=== PATIENT | female | born 1990 | race Caucasian/White ===

== ENCOUNTER 2017-05-27 12:28 | Emergency (ER) | payer MEDICAID ==
[~2017-05-27] VITALS: Ht 165.1 cm; Wt 111.0 kg
[~2017-05-27 12:28] MED LIST: ALBU6.7H INH; DOCU-150 PO; FERR-63 PO
[2017-05-27] MEDS ORDERED: PANTOPRAZOLE SODIUM 40 MG/VIAL IV STA (12:44)
[2017-05-27] MEDS ORDERED: ONDANSETRON HCL 4MG/2ML VIAL IV STA (12:44)
[2017-05-27] MEDS ORDERED: SODIUM CHLORIDE 0.9% 1,000 ML IV ONE (12:44)
[2017-05-27 13:11] LABS: BASOPHILS % 0.6 % (0.0-2.0); EOSINOPHILS % 1.2 % (0.0-5.0); HEMATOCRIT. 29.4 % (36.0-48.0); HEMOGLOBIN. 8.8 g/dL (12.0-16.0); LYMPHOCYTES % 15.6 % (20.0-50.0); MEAN CORPUSCULAR HEMOGLOBIN 18.6 pg (28.0-32.0); MEAN CORPUSCULAR VOLUME 61.9 fL (81.0-99.0); MEAN PLATELET VOLUME 7.3 fl (7.4-10.4); MONOCYTES % 3.5 % (2.0-8.0); NEUTROPHILS % 79.1 % (40.0-76.0); PLATELET 466 x1000/uL (130-400); RED BLOOD CELL COUNT 4.75 mill/uL (4.2-5.4); RED CELL DISTRIBUTION WIDTH 18.9 % (11.6-14.6)
[2017-05-27] MEDS ORDERED: FAMOTIDINE 20MG/2ML VIAL IV ONE (13:15)
[2017-05-27 13:16] LABS: CHLORIDE 107 mEq/L (98-107)
[2017-05-27 13:18] LABS: INR 1.1; PARTIAL THROMBOPLASTIN TIME 29.4 sec (23.4-31.0); PROTHROMBIN TIME 10.9 sec (9.4-11.6)
[2017-05-27 13:24] LABS: CARBON DIOXIDE 24 mEq/L (21-32); ETHANOL BLOOD < 10 mg/dL
[2017-05-27 13:35] LABS: PLATELET ESTIMATE INCREASED
[2017-05-27 13:39] LABS: HCG SCREEN NEGATIVE
[2017-05-27 14:04] LABS: CLARITY URINE CLOUDY (CLEAR); COLOR URINE YELLOW (YELLOW); GLUCOSE URINE NEGATIVE (NEGATIVE); KETONES URINE NEGATIVE (NEGATIVE); LEUKOCYTE ESTERASE URINE TRACE (NEGATIVE); NITRITE URINE NEGATIVE (NEGATIVE); OCCULT BLOOD URINE NEGATIVE (NEGATIVE); PROTEIN URINE NEGATIVE (NEGATIVE); SPECIFIC GRAVITY URINE 1.027 (1.005-1.030)
[2017-05-27 14:18] LABS: *AMPHETAMINES SCREEN URINE NEGATIVE (NEGATIVE); *BARBITURATES SCREEN URINE NEGATIVE (NEGATIVE); *COCAINE SCREEN URINE NEGATIVE (NEGATIVE); METHADONE URINE SCREEN NEGATIVE (NEGATIVE); PHENCYCLIDINE URINE SCREEN NEGATIVE (NEGATIVE)
[2017-05-27 14:29] LABS: *BENZODIAZEPINES SCREEN URINE PRESUMTIVE POSITIVE (NEGATIVE); CANNABINOID URINE SCREEN PRESUMTIVE POSITIVE (NEGATIVE); OPIATES URINE SCREEN PRESUMTIVE POSITIVE (NEGATIVE)
[2017-05-27] MEDS ORDERED: IOHEXOL-350 100 ML BOTTLE ONE (16:39)
[2017-05-27 17:08] VITALS: BP 108/65
[2017-05-27] MEDS ORDERED: METOCLOPRAMIDE HCL 10MG/2ML VIAL IV ONE (17:30)
== END 2017-05-27 18:59 | disposition home or self-care (01) ==
LOC: ER 14:02
DX: K29.70 Gastritis, unspecified, without bleeding (principal); K21.9 Gastro-esophageal reflux disease without esophagitis; J45.909 Unspecified asthma, uncomplicated; F12.10 Cannabis abuse, uncomplicated; Z90.49 Acquired absence of other specified parts of digestive tract; Z98.890 Other specified postprocedural states; Z88.8 Allergy status to other drugs, medicaments and biological substances
CPT/HCPCS: 36415; 71010; 71275; 80053; 80305; 81001; 83690; 84443; 84703; 85025; 85379; 85610; 85730; 86850; 86900; 86901; 93005; 93970; 96361; 96374; 96375; 99285; G0482; J2405; J2765; J3490; Q9967; Z7610; C9113; J7030

== ENCOUNTER 2018-10-23 01:46 | Emergency (ER) | payer MEDICAID, OTHER ==
[~2018-10-23] VITALS: Ht 165.1 cm; Wt 108.0 kg
[2018-10-23] MEDS ORDERED: SODIUM CHLORIDE 0.9% 1,000 ML IV ONE (04:03)
[2018-10-23 04:38] LABS: BASOPHILS % 0.3 % (0.0-2.0); EOSINOPHILS % 1.1 % (0.0-5.0); HEMATOCRIT. 25.3 % (36.0-48.0); HEMOGLOBIN. 7.4 g/dL (12.0-16.0); LYMPHOCYTES % 23.2 % (20.0-50.0); MEAN CORPUSCULAR VOLUME 61.7 fL (81.0-99.0); MEAN PLATELET VOLUME 7.8 fl (7.4-10.4); MONOCYTES % 5.1 % (2.0-8.0); NEUTROPHILS % 70.3 % (40.0-76.0); PLATELET 460 x1000/uL (130-400)
[2018-10-23 04:44] LABS: CHLORIDE 110 mEq/L (98-107)
[2018-10-23 05:44] LABS: PLATELET ESTIMATE INCREASED
[2018-10-23 06:30] VITALS: BP 119/82
== END 2018-10-23 06:49 | disposition home or self-care (01) ==
LOC: ER 01:46
DX: D64.9 Anemia, unspecified (principal); M79.18 Myalgia, other site; R11.2 Nausea with vomiting, unspecified; F12.10 Cannabis abuse, uncomplicated; Z88.8 Allergy status to other drugs, medicaments and biological substances; Z79.899 Other long term (current) drug therapy; Z90.49 Acquired absence of other specified parts of digestive tract
CPT/HCPCS: 36415; 71045; 80053; 81025; 84484; 85025; 86850; 86900; 86901; 93005; 96360; 96361; 99284; J7030; Z7610